=== PATIENT | female | born 1960 | race Caucasian/White ===

== ENCOUNTER 2019-10-02 09:12 | Outpatient (CLI) | payer BC, SELFPAY ==
--- NOTE | 2019-10-02 09:18 | MM_ITS ---
WS: [id number] BILATERAL DIGITAL SCREENING MAMMOGRAPHY WITH CAD CLINICAL INFORMATION: SCREENING HISTORY: Screening mammogram. No current complaints. COMPARISON: TECHNIQUE: Bilateral CC and MLO views. FINDINGS: The breasts are composed of heterogeneous fibroglandular density tissue, which can limit the detectio n of small underlying mass lesions. No suspicious mass, asymmetry, calcifications, or architectural d istortion. No evidence of malignancy. MM/[id number] IMPRESSION: BI-RADS: 1-Negative FOLLOW UP: 1 Year Follow-up Recommend return to annual screening mammography.
== END 2019-10-02 09:13 | disposition home or self-care (01) ==
LOC: RADSHAW 09:16
PROVIDERS: PCP Nurse Practitioner; Visit Provider Nurse Practitioner Family
DX: Z12.31 Encounter for screening mammogram for malignant neoplasm of breast (principal)
CPT/HCPCS: 77067

== ENCOUNTER 2020-03-19 10:30 | Emergency (ER) | payer BC, SELFPAY ==
[2020-03-19 10:56] VITALS: BP 123/77; PULSE 91; RESP 16; TEMP 36.8; O2SAT 97; BMI 35.9
--- NOTE | 2020-03-19 11:59 | XR_ITS ---
WS: [id number] XR chest 1V portable [id number] REASON FOR EXAM: COVID FINDINGS: Mild tortuosity of the thoracic aorta without significant dilatation. Mild cardiac enlargement. Subtle but likely patchy interstitial alveolar infiltrative changes in the left lower lung and periph erally in the left midlung field. No evidence of effusion. Degenerative spondylosis in the mid and lower thoracic spine, moderate XR/XR chest 1V portable [id number] IMPRESSION: Probable infiltrative changes in the left lung as above. Findings are compatibl e with acute/subacute pneumonitis.
--- NOTE | 2020-03-19 11:59 | W.ED.COVID ---
HPI - COVID General: Chief Complaint: COVID symptoms Stated Complaint: covid +, weakness and nausea Time Seen by Provider: 03/19/20 11:49 Triage information: Has fever, cough or shortness of breath. Exposure to COVID + person last 14 days History of Present Illness: HPI Narrative: This patient is a 60 year old female presenting on day 10 of COVID infection. She started having nausea, body aches, fever on Sunday of last week, and the developed a cough on Sunday. She had a positive test done on Sunday. 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 She has had some shortness of breath but has been monitoring her pulse ox and it has been ok. She is 98% on RA here. She has had vomiting and diarrhea and came in today due to severe weakness. MD complaint: known COVID positive Prior covid testing: yes, results known Prior testing date: 03/14/20 COVID 19 common symptoms: positive fever(s), chills, cough, non-productive cough, dyspnea, fatigue, body aches, headache(s), nausea, vomiting and diarrhea COVID 19 other sytmptoms: negative chest pain Onset (ago): day(s) (10) Severity: moderate Pertinent comorbid conditions: obesity (borderline, BMI 36) COVID Results: No Data to Display Review of Systems General: Reports: 10 or more systems reviewed and unremarkable except in HPI and below Const: Reports: fever(s), chills, body aches and fatigue Eyes: Denies: change in vision ENMT: Denies: odynophagia Card: Denies: chest pain or swelling of feet/ankles Resp: Reports: dyspnea and non-productive cough GI: Reports: nausea, vomiting and diarrhea : Denies: flank pain or difficulty voiding Musc: Denies: neck pain or back pain Skin/Breast: Denies: rash Neuro: Reports: headache(s) [place]/Lymph: Denies: easy bruising or easy bleeding PFSH ED PFSH: Social History Smoking and tobacco status: never smoked Alcohol intake: never Substance/Drug Use: never Physical Exam Const: COMMON NORMALS: patient oriented x3, no limitations and alert GENERAL APPEARANCE: cooperative and ill appearing NUTRITIONAL APPEARANCE: overweight ORIENTATION/CONSCIOUSNESS: Yes awake HENMT: HEAD & SCALP: normal to inspection FACE & SINUS: normal facial exam Eye: GENERAL EYE: appearance normal, both eyes and all related structures Neck/C-Spine: COMMON NORMALS: supple, no meningeal signs and no JVD Chest: COMMONS NORMALS: normal inspection of the chest Resp: COMMON NORMALS: No use of accessory muscles and clear to auscultation bilaterally EFFORT & INSPECTION: Yes tachypneic AUSCULTATION: clear to auscultation bilaterally Cardio: COMMON NORMALS: no JVD, regular rate, regular rhythm and No murmurs present (Cardio) RATE: regular rate RHYTHM: regular rhythm GI: COMMON NORMALS: Normal to inspection, nondistended, normoactive bowel sounds present, Soft to palpation and non-tender INSPECTION: Yes normal to inspection AUSCULTATION: Yes normoactive bowel sounds PALPATION: Yes Soft to palpation Back/Pelvis: COMMON NORMALS: thoracic and lumbar spine normal to inspection Extremity: COMMON NORMALS: normal to inspection Neuro: COMMON NORMALS: patient oriented x3, moves all extremities, no focal motor deficits and no sensory deficits noted SENSORIUM/ORIENTATION: Yes alert MENINGEAL SIGNS: Yes no meningeal signs Psych: COMMON NORMALS: mental status grossly normal, cooperative and normal affect Skin: COMMON NORMALS: no rashes or lesions noted and turgor normal GENERAL SKIN EXAM: no rashes or lesions noted and turgor normal Course ED course: Patient feeling a little better. She has sats in the 98 - 100% range on room air during the whole ED stay. We discussed the findings on xray and on her labs - she is on day 10 and without major risk factors - at this time she is stable to go home however we discussed the possibility of deterioration and she understands the return precautions. I did give a script for decadron and she will continue OTC cough medicines as needed. She has a pulse ox at home. Vital Signs: Vital signs: Vital Signs Temperature 98.2 F 03/19/20 10:56 Pulse Rate 92 03/19/20 13:15 Respiratory Rate 14 03/19/20 13:15 Blood Pressure 123/70 03/19/20 13:15 Pulse Oximetry 100 03/19/20 13:15 MDM - COVID Lab Data: Labs: Lab Results 03/19/20 03/19/20 03/19/20 Range/Units 12:20 12:20 12:20 WBC 4.1 (4.0-10.0) 10^3/ uL RBC 4.34 (4.1-5.3) 10^6/u L Hgb 12.9 (11.5-15.3) g/dL Hct 40.0 (37.0-47.0) % MCV 92.2 (81-99) fL MCH 29.7 (28.0-34.0) pg MCHC 32.3 (30.0-36.0) g/dL RDW 14.0 (12.1-15.1) % Plt Count 173 (130-400) 10^3/c mm MPV 10.5 H (7.4-10.4) fL Neut % (Auto) 59.3 % Lymph % (Auto) 31.4 % [place] % (Auto) 8.7 % Eos % (Auto) 0.2 % Baso % (Auto) 0.2 % Neut # (Auto) 2.45 (1.8-7.7) 10^3/u L Lymph # (Auto) 1.3 (0.8-4.8) 10^3/u L [place] # (Auto) 0.4 (0.2-0.9) 10^3/u L Eos # (Auto) 0.0 (0.0-0.8) 10^3/u L Baso # (Auto) 0.0 (0.0-0.1) 10^3/u L Nucleated RBC % (a uto) 0 % Nucleated RBCs # 0.0 /100WBC D-Dimer 0.52 (0-0.59) ug/mIFE U Sodium 139 (136-145) mmol/L Potassium 4.1 (3.5-5.1) mmol/L Chloride 106 (98-107) mmol/L Carbon Dioxide 23 (22-29) mmol/L Anion Gap 14.1 (5-19) BUN 14 (8-23) mg/dL Creatinine 0.8 (0.5-0.9) mg/dL GFR Calculation 72.9 L (90-130) mL/min Glucose 107 (65-115) mg/dL Calculated Osmolal ity 289 (285-295) mOsm/k g Lactic Acid (0.5-2.2) mmol/L Calcium 9.1 (8.5-10.5) mg/dL Total Bilirubin 0.3 (0.15-1.2) mg/dL AST 36 H (0-32) U/L ALT 27 (0-33) U/L Alkaline Phosphata se 155 H (35-105) IU/L C-Reactive Protein 16.2 H (0.0-4.9) mg/L Total Protein 6.5 L (6.6-8.7) g/dL Albumin 3.5 (3.5-5.2) g/dL Globulin 3.0 (1.3-4.6) g/dL Procalcitonin 0.05 (0-0.5) ng/mL /02/26 Range/Units 12:20 WBC (4.0-10.0) 10^3/ uL RBC (4.1-5.3) 10^6/u L Hgb (11.5-15.3) g/dL Hct (37.0-47.0) % MCV (81-99) fL MCH (28.0-34.0) pg MCHC (30.0-36.0) g/dL RDW (12.1-15.1) % Plt Count (130-400) 10^3/c mm MPV (7.4-10.4) fL Neut % (Auto) % Lymph % (Auto) % [place] % (Auto) % Eos % (Auto) % Baso % (Auto) % Neut # (Auto) (1.8-7.7) 10^3/u L Lymph # (Auto) (0.8-4.8) 10^3/u L [place] # (Auto) (0.2-0.9) 10^3/u L Eos # (Auto) (0.0-0.8) 10^3/u L Baso # (Auto) (0.0-0.1) 10^3/u L Nucleated RBC % (a uto) % Nucleated RBCs # /100WBC D-Dimer (0-0.59) ug/mIFE U Sodium (136-145) mmol/L Potassium (3.5-5.1) mmol/L Chloride (98-107) mmol/L Carbon Dioxide (22-29) mmol/L Anion Gap (5-19) BUN (8-23) mg/dL Creatinine (0.5-0.9) mg/dL GFR Calculation (90-130) mL/min Glucose (65-115) mg/dL Calculated Osmolal ity (285-295) mOsm/k g Lactic Acid 1.3 (0.5-2.2) mmol/L Calcium (8.5-10.5) mg/dL Total Bilirubin (0.15-1.2) mg/dL AST (0-32) U/L ALT (0-33) U/L Alkaline Phosphata se (35-105) IU/L C-Reactive Protein (0.0-4.9) mg/L Total Protein (6.6-8.7) g/dL Albumin (3.5-5.2) g/dL Globulin (1.3-4.6) g/dL Procalcitonin (0-0.5) ng/mL COVID Results: No Data to Display Discharge Plan Discharge Patient Disposition: Home Clinical Impression: Pneumonia due to severe acute respiratory syndrome coronavirus 2 (SARS-CoV-2) Condition: Stable Prescriptions: New Decadron 6 mg tablet 6 mg PO DAILY Qty: 7 RF: 0 No Action No Known Home Medications RF: 0 Discharge Orders: Discharge ED (Routine); Ordered 03/19/20 Ordered By: Cyn Rowland Referrals: Nilam Bose APN [Primary Care Provider] - Discharge Diet: Advance as tolerated Discharge Activity: Limit activity as instructed Patient Instructions: Viral Pneumonia (ED) Activity Restrictions/Additional Instructions: Continue to rest and drink plenty of fluids. Continue to monitor your oxygen levels. Return to the ED if feeling short of breath, or if oxygen levels stay below 90 - 92% even at rest. Return as well for any other new or worsening symptoms. Continue to self quarantine until you have been without fever for 3 days. Coding Level of Care Code ED Geological Science Teacher for Estela Fwdawn Exam Comprehensive
[2020-03-19] MEDS: sodium chloride 0.9% 1,000 ML 999 ML IV (12:15)
[2020-03-19 12:28] VITALS: O2SAT 97
[2020-03-19 12:36] LABS: Basophils % 0.2 %; Eosinophils % 0.2 %; Hemoglobin 12.9 g/dL (11.5-15.3); Lymphocytes # 1.3 10^3/uL (0.8-4.8); Lymphocytes % 31.4 %; Mean Corpuscular HGB Conc 32.3 g/dL (30.0-36.0); Mean Corpuscular Hemoglobin 29.7 pg (28.0-34.0); Mean Corpuscular Volume 92.2 fL (81-99); Mean Platelet Volume 10.5 fL (7.4-10.4); Monocytes # 0.4 10^3/uL (0.2-0.9); Monocytes % 8.7 %; Neutrophils # 2.45 10^3/uL (1.8-7.7); Neutrophils % 59.3 %; Nucleated Red Blood Cells % 0 %; Platelet Count 173 10^3/cmm (130-400); Red Blood Count 4.34 10^6/uL (4.1-5.3); White Blood Count 4.1 10^3/uL (4.0-10.0)
[2020-03-19 12:46] LABS: D Dimer 0.52 ug/mIFEU (0-0.59)
[2020-03-19 12:57] LABS: Lactic Sepsis W/Reflex 1.3 mmol/L (0.5-2.2)
[2020-03-19 13:04] LABS: Procalcitonin 0.05 ng/mL (0-0.5)
[2020-03-19 13:15] VITALS: BP 123/70; PULSE 92; RESP 14; O2SAT 100
[2020-03-19 13:15] LABS: Alanine Aminotransferase 27 U/L (0-33); Albumin Level 3.5 g/dL (3.5-5.2); Alkaline Phosphatase 155 IU/L (35-105); Blood Urea Nitrogen 14 mg/dL (8-23); C Reactive Protein 16.2 mg/L (0.0-4.9); Calcium 9.1 mg/dL (8.5-10.5); Carbon Dioxide 23 mmol/L (22-29); Chloride 106 mmol/L (98-107); Glomerular Filtration Rate 72.9 mL/min (90-130); Glucose 107 mg/dL (65-115); Osmolality Calculated 289 mOsm/kg (285-295); Sodium 139 mmol/L (136-145); Total Bilirubin 0.3 mg/dL (0.15-1.2); Total Protein 6.5 g/dL (6.6-8.7)
[2020-03-19 13:31] LABS: Anion Gap 14.1 (5-19); Aspartate Amino Transferase 36 U/L (0-32); Potassium 4.1 mmol/L (3.5-5.1)
[2020-03-19 14:14] VITALS: BP 136/86; PULSE 82; RESP 16; O2SAT 98
== END 2020-03-19 14:15 | disposition home or self-care (01) ==
PROVIDERS: Emergency Provider Emergency Medicine; PCP Nurse Practitioner
DX: U07.1 COVID-19 (principal); J12.89 Other viral pneumonia
CPT/HCPCS: 12345; 71045; 80053; 83605; 84145; 85025; 85378; 86140; 96360; 99283; J7030

== ENCOUNTER 2021-06-17 14:30 | Outpatient (CLI) | payer OTHER, SELFPAY ==
--- NOTE | 2021-06-17 14:41 | MM_ITS ---
WS: [id number] BILATERAL 3D TOMOSYNTHESIS DIGITAL SCREENING MAMMOGRAPHY WITH CAD CLINICAL INFORMATION: SCREENING HISTORY: Screening mammogram. No current complaints. COMPARISON: October 02, 2019 TECHNIQUE: Bilateral CC and MLO views. FINDINGS: The breasts are composed of heterogeneous fibroglandular density tissue, which can limit the detectio n of small underlying mass lesions. Incidental punctate calcifications LEFT breast. 6 mm ovoid nodule along the posterior nipple line LEFT breast near the 12:00 position. Recommend further evaluation wi th LEFT breast diagnostic mammography 3-D Tomosynthesis and ultrasound. RIGHT breast is unremarkable. MM/[id number] IMPRESSION: BI-RADS: 0-Incomplete: Need additional imaging evaluation FOLLOW UP: Need Additional Imaging Recommend further evaluation with LEFT breast diagnostic mammography 3-D Tomosy nthesis and ultrasound.
== END 2021-06-17 14:31 | disposition home or self-care (01) ==
PROVIDERS: PCP Nurse Practitioner Family; Visit Provider Nurse Practitioner Family
DX: Z12.31 Encounter for screening mammogram for malignant neoplasm of breast (principal)
CPT/HCPCS: 77063; 77067

== ENCOUNTER 2021-07-08 13:43 | Outpatient (CLI) | payer OTHER, SELFPAY ==
--- NOTE | 2021-07-08 13:47 | MM_ITS ---
WS: [id number] LEFT 3D TOMOSYNTHESIS DIGITAL MAMMOGRAPHY WITH CAD CLINICAL INFORMATION: ABNORMAL MAMMOGRAM COMPARISON: June 17, 2021 TECHNIQUE: 5 views of the left breast were obtained. FINDINGS: Scattered fibroglandular densities of the left breast. Previously described 6 mm asymmetric density u pper outer LEFT breast appears persistent. Ultrasound is pending. A few incidental punctate calcifica tions. ULTRASOUND BREAST LEFT TECHNIQUE: Ultrasound left breast focused area of concern. CLINICAL INFORMATION: ABNORMAL MAMMOGRAM COMPARISON: None. FINDINGS: Ultrasound LEFT breast 1:00-3:00 position. Dense underlying parenchymal tissue. No suspicious cystic or solid lesions. No lesions to target for biopsy. Recommend return to annual screening mammography. MM/[id number] IMPRESSION: BI-RADS: 2-Benign FOLLOW UP: 1 Year Follow-up Recommend return to annual screening mammography.
== END 2021-07-08 13:44 | disposition home or self-care (01) ==
PROVIDERS: PCP Nurse Practitioner Family; Visit Provider Nurse Practitioner Family
DX: R92.8 Other abnormal and inconclusive findings on diagnostic imaging of breast (principal)
CPT/HCPCS: 76642; 77061

== ENCOUNTER → 2021-10-05 15:08 | Outpatient (BNVA) | payer OTHER, SELFPAY | PROVIDERS: PCP Nurse Practitioner Family; Referring Provider Dermatology; Visit Provider Podiatrist Foot & Ankle Surgery | DX: M19.072 Primary osteoarthritis, left ankle and foot (principal); M19.071 Primary osteoarthritis, right ankle and foot; M79.671 Pain in right foot | CPT/HCPCS: 77077 ==

== ENCOUNTER → 2022-01-24 15:14 | Outpatient (BNVA) | payer OTHER, SELFPAY | PROVIDERS: PCP Nurse Practitioner Family; Visit Provider Orthopaedic Surgery | DX: M17.0 Bilateral primary osteoarthritis of knee (principal) | CPT/HCPCS: 73560; 73565 ==

== ENCOUNTER 2022-10-03 09:27 | Outpatient (CLI) | payer OTHER, SELFPAY ==
--- NOTE | 2022-10-03 09:33 | MM_ITS ---
WS: [id number] VIEWS: MLO and CC views both breasts. 3D digital tomosynthesis is also included in this exam. Comparison made with prior exam of 12/15/2013, 03/06/2018, 10/02/2019, 06/17/2021.. Findings: There was no sign of mass, architectural distortion or suspicious calcification in either breast. Sta ble appearing nodular densities in both breasts.The breasts are heterogeneously dense which may obscu re small masses MM/[id number] Impression: BI-RADS: 2-Benign finding. FOLLOW-UP: 1 Year Follow-up This mammogram was also analyzed by the Computer Aided Detection System R2 Imag e Cigarette Package Examiner.
== END 2022-10-03 09:28 | disposition home or self-care (01) ==
PROVIDERS: PCP Nurse Practitioner Family; Visit Provider Nurse Practitioner Family
DX: Z12.31 Encounter for screening mammogram for malignant neoplasm of breast (principal)
CPT/HCPCS: 77063; 77067

== ENCOUNTER 2025-02-26 11:21 | Outpatient (CLI) | payer MEDICARE, SELFPAY ==
--- NOTE | 2025-02-26 11:20 | MM_ITS ---
WS: [id number] BILATERAL SCREENING DIGITAL TOMOSYNTHESIS MAMMOGRAM WITH CAD HISTORY: SCREENING COMPARISON: 10/03/2022, 07/08/2021, 06/17/2021 Bilateral CC and MLO views with tomosynthesis and synthetic mammography submitted. Computer aided detection analyzed. Breast composition: The breasts are heterogeneously dense, which may obscure small masses. No suspicious masses, microcalcifications or architectural distortion. Scattered asymmetries and calcifications. No distortion or area of increasing density. MM/MM scr tomosynthesis [id number] IMPRESSION: BI-RADS: 2 - Benign FOLLOW UP: 1 Year Follow-up
== END 2025-02-26 11:22 | disposition home or self-care (01) ==
LOC: MOBLMAM 11:23
PROVIDERS: PCP Nurse Practitioner Family; Visit Provider Nurse Practitioner Family
DX: Z12.31 Encounter for screening mammogram for malignant neoplasm of breast (principal); R92.333 Mammographic heterogeneous density, bilateral breasts; N64.89 Other specified disorders of breast
CPT/HCPCS: 77063; 77067

== ENCOUNTER 2025-03-31 16:41 | Outpatient (CLI) | payer MEDICARE, SELFPAY ==
--- NOTE | 2025-03-31 16:48 | XR_ITS ---
WS: [id number] Lumbar spine, 6 views including both obliques and lateral views in flexion, extension and neutral position, 03/31/2025 Clinical Data: DORSALGIA, UNSPECIFIED Comparison: Lumbar spine, 04/04/2012 Findings: No compression fractures are seen. There is degenerative disc narrowing at all levels from T12-L1 through L3-L4. There is a 0.6 cm retrolisthesis of L2 on L3 and a 0.3 cm retrolisthesis of L3 on L4. No instability occurs on flexion or extension. There is osteoarthritis of all lumbar vertebral bodies and a dextroscoliosis.. The transverse processes and SI joints are normal. The oblique images show no spondylolysis. XR/XR lumbar spine 6V w f/e [id number] Impression: 1. Osteoarthritis, dextroscoliosis and multilevel degenerative disc narrowing. 2. No spondylolysis. 3. Retrolisthesis of L2 on L3 and L3 on L4 but no instability on flexion or ext ension.
== END 2025-03-31 16:42 | disposition home or self-care (01) ==
LOC: RAD 16:42
PROVIDERS: PCP Nurse Practitioner Family; Visit Provider Nurse Practitioner Family
DX: M47.816 Spondylosis without myelopathy or radiculopathy, lumbar region (principal); M51.369 Other intervertebral disc degeneration, lumbar region without mention of lumbar back pain or lower extremity pain; M43.16 Spondylolisthesis, lumbar region
CPT/HCPCS: 72114